=== PATIENT | female | born 1965 | race Caucasian/White ===

== ENCOUNTER 2020-01-19 11:33 | Emergency (ER) | payer OTHER, SELFPAY ==
[2020-01-19 11:49] VITALS: BP 136/82; PULSE 97; RESP 16; TEMP 36.8; O2SAT 98
--- NOTE | 2020-01-19 11:53 | ED.WOUNDLAC ---
HPI - Wound/Laceration General Chief Complaint: Wound/Laceration Stated Complaint: Burn Time Seen by Provider: 01/19/20 11:52 Source: patient and RN notes reviewed Mode of arrival: ambulatory Limitations: no limitations History of Present Illness HPI narrative: 54-year-old female presents with concern for gonzalez to the digits of her right hand. Reports approximately 1 week ago she picked up a hot plastic spoon causing gonzalez to the pads of the third and fourth digits and a burn to the palmar aspect of the fifth digit. Reports the gonzalez blistered, she did not disrupt the blisters. Reports she called her doctor to get an appointment regarding the gonzalez and they told her to come to urgent care. Reports the areas are painful when she touches something, otherwise are not painful. Reports slight tingling under the skin of the burn. She denies any drainage from the area. Denies any redness, fever Extremity Location: Right: hand Related Data Home Medications Medication Instructions Recorded Confirmed clonazepam 0.5 mg tablet 0.5 mg PO TID tablet 10/14/19 10/14/19 lithium carbonate 150 mg capsule 150 mg PO QID 10/14/19 10/14/19 quetiapine 200 mg tablet 200 mg PO DAILY tablet 10/14/19 10/14/19 Allergies Allergy/AdvReac Type Severity Reaction Status Date / Time hydromorphone Allergy Unknown Nausea and Verified 01/19/20 11:55 Vomiting morphine Allergy Unknown Nausea and Verified 01/19/20 11:55 Vomiting Review of Systems Review of Systems: Narrative: CONSTITUTIONAL: Denies malaise, chills, sweats, or fever. CARDIOVASCULAR: Denies chest pain, palpitations, or edema. RESPIRATORY: Denies cough or dyspnea. SKIN: Reports brown, hard skin to the tips of the third and fourth digits, palmar aspect of the fifth digit MUSCULOSKELETAL: Denies decreased range of motion, musculoskeletal pain NEUROLOGIC: Denies numbness, weakness All systems reviewed & are unremarkable except as noted in HPI and below PMFSH Past Medical History Medical History (Updated 01/19/20 @ 12:04 by Meeta Mcgill NP) Bipolar 2 disorder, major depressive episode Family History Family History (System 05/27/19 @ 13:39 by Mary Anderson) Father Acute myocardial infarction, Onset Age: 45 Social History Social History (System 05/27/19 @ 13:39 by Mary Rivas Smoking status: Never smoker Alcohol intake: never Comments At time of signature, agree with nursing past medical, surgical, social and family history. There is no relevant family history pertinent to the presenting complaint Exam Narrative: Exam Narrative: GENERAL: Well-appearing, well-nourished, and in no acute distress. HEAD: Normocephalic EYES: PERRLA, conjunctivae clear ENT: Mucous membranes moist. NECK: Supple. CHEST: No respiratory distress. Speaks in full sentences. HEART: Regular rate and rhythm. EXTREMITIES: Right hand has normal range of motion, no edema, normal strength and sensation. SKIN: Warm, dry, no rash. Palmar, distal aspect of the third and fourth digits have brown, callus healing gonzalez approximately 1 cm diameter with no surrounding induration, erythema, edema, displays routine healing. The palmar medial aspect of the fifth digit has a brown, callus healing burn approximately 0.5 cm diameter with no surrounding induration, erythema, edema, displays routine healing NEURO: Alert and oriented x3. PSYCH: Normal mood and affect Course Course Emergency Course: Patient is aware of diagnosis, understands and agrees to treatment plan. Anticipatory guidance given. Patient agrees to follow-up as directed and is aware of reasons to seek care at the emergency department. Portions of this record may have been created with voice recognition software Vital Signs Vital signs: Vital Signs Temperature 98.2 F 01/19/20 11:49 Pulse Rate 97 01/19/20 11:49 Respiratory Rate 16 01/19/20 11:49 Blood Pressure 136/82 01/19/20 11:49 Pulse Oximetry
== END 2020-01-19 12:09 | disposition home or self-care (01) ==
PROVIDERS: Emergency Provider Nurse Practitioner; PCP Internal Medicine
DX: T23.031A Burn of unspecified degree of multiple right fingers (nail), not including thumb, initial encounter (principal); T79.8XXA Other early complications of trauma, initial encounter; X19.XXXA Contact with other heat and hot substances, initial encounter; E78.00 Pure hypercholesterolemia, unspecified; I10 Essential (primary) hypertension; F41.9 Anxiety disorder, unspecified; F31.81 Bipolar II disorder
CPT/HCPCS: 99211; G0463

== ENCOUNTER 2020-04-11 07:29 | Outpatient (CLI) | payer OTHER, SELFPAY ==
--- NOTE | ~2020-04-11 | US_ITS ---
EXAMINATION: US retroperitoneal duplex ltd EXAM DATE: 04/11/2020 08:53 INDICATION: Essential Hypertension, Abn Findings Of Blood Chemistry R79.89 - Other specified abnormal findings of blood chemistry . TECHNIQUE: Multiple grayscale and Doppler images of the kidneys and renal arteries were obtained. Co rrelation is made to kidney ultrasound same date. FINDINGS: The aorta peak systolic velocity is 56 cm/s. The right renal artery peak systolic velocity is 82 cm/s in the proximal segment, 118 cm/s in the mid segment, and 71 cm/s in the distal segment. Left renal arteries were unable to be obtained, kidney is moderate to severely atrophic. Resistive indices also obtained on the right were also obtained at 0.9, 0.8, 0.6. Normal is considere d less than or equal to 0.7, however there is no right-sided hydronephrosis to otherwise suggest obst ructive nephropathy. IMPRESSION: 1. Right renal artery Doppler velocities within normal limits. 2. Left moderate to severe renal atrophy, artery evaluation could not be obtained. Reviewed, dictated and finalized at location B. 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 Right renal artery Doppler velocities within normal limits. 2. Left moderate to severe renal atrophy, artery evaluation could not be obtai violetta.
--- NOTE | ~2020-04-11 | US_ITS ---
EXAMINATION: US renal BI EXAM DATE: 04/11/2020 08:53 INDICATION: R94.4 - Abnormal results of kidney function studies R79.89 - Other specified abnormal fin dings of blood chemistry. TECHNIQUE: Multiple grayscale and Doppler images of the kidneys were obtained (by a technologist who performed the scan) and subsequently reviewed. Comparison is made to prior examination from 04/11/2020 . FINDINGS: Right kidney: There is normal contour and echogenicity. It measures 11.7 x 6.0 x 5.0 centimeters. T here are no focal renal lesions identified. There is no hydronephrosis. Left kidney: There is atrophic and echogenic. It measures 5.3 x 2.5 x 2.2 centimeters. There are no focal renal lesions identified. There is no hydronephrosis. Bladder unremarkable. IMPRESSION: Moderate to severe chronic left renal atrophy. Reviewed, dictated and finalized at location B. 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
== END 2020-04-11 07:30 | disposition home or self-care (01) ==
PROVIDERS: PCP Internal Medicine; Visit Provider Nurse Practitioner
DX: R94.4 Abnormal results of kidney function studies (principal); R79.89 Other specified abnormal findings of blood chemistry; I10 Essential (primary) hypertension; N26.1 Atrophy of kidney (terminal)
CPT/HCPCS: 76775; 93976

== ENCOUNTER → 2021-09-14 09:11 | Outpatient (CLI) | payer OTHER, SELFPAY ==
--- NOTE | ~2021-09-14 | MMUS_ITS ---
EXAMINATION: MM diagnostic libertad BI w zoe, US breast LT limited HISTORY: Palpable left breast mass for 3 weeks. TECHNIQUE: Additional 3-D tomosynthesis images of the breasts were performed and synthetic 2-D images were generated. CAD analysis was submitted and interpreted. High resolution Limited left breast ultr asound was performed. COMPARISON: No prior studies for comparison. BREAST PARENCHYMAL COMPOSITION: Breast composed of scattered areas of fibroglandular density FINDINGS: MAMMOGRAPHIC FINDINGS: There are no suspicious masses, calcifications or architectural distortion in the right breast. In th e area of palpable concern in the upper inner quadrant of the left breast posteriorly overlying the p ectoralis muscle there is a lobulated irregular shaped mass with some marginal spiculations. ULTRASOUND: Limited left breast ultrasound: At 11:00, 11 cm from the nipple in the area of palpable concern there is a complex irregular shaped mass with heterogeneous internal echotexture, mixed posterior attenuat ion and marginal vascularity. This mass measures 3.7 x 2.4 x 4.7 cm. IMPRESSION: 1. Complex mass of the left breast at 11:00, 11 cm from the nipple, corresponding to the palpable fin ding. 2. Ultrasound-guided left breast biopsy recommended. BI-RADS category 5, highly suggestive of malignancy. Reviewed, dictated and finalized at location A. IMPRESSION: 1. Complex mass of the left breast at 11:00, 11 cm from the nipple, correspondi ng to the palpable finding. 2. Ultrasound-guided left breast biopsy recommended. BI-RADS category 5, highly suggestive of malignancy.
== END ==
PROVIDERS: PCP Internal Medicine; Visit Provider Obstetrics & Gynecology
DX: N63.22 Unspecified lump in the left breast, upper inner quadrant (principal)
CPT/HCPCS: 76642; 77062; 77066; G0279

== ENCOUNTER 2021-11-12 12:49 | Outpatient (CLI) | payer OTHER, SELFPAY ==
--- NOTE | 2021-11-13 12:10 | WPDPFTINT ---
PFT Procedure Performed PFT Procedure Performed Spirometry with Pre/Post Bronchodilator Plethysmography (Lung Vol) Diffusing Cap (DLCO) Flow Vol Loop PFT Interpretation Lung volumes were measured with the body plethysmography method. The diminished expiratory reserve volume is related to obesity. The remaining lung volumes are unremarkable. Spirometry showed normal expiratory flow rates and a normal FEV1 to FVC ratio of 82%. Following administration of a bronchodilator there was no significant change in the expiratory flow rates. Lung diffusion capacity is borderline normal at 74% predicted. The flow volume loop is unremarkable. Impression: Spirometry, lung volumes, and lung diffusion capacity all within the normal range.
== END 2021-11-12 12:50 | disposition home or self-care (01) ==
LOC: ANHPFT 12:51
PROVIDERS: PCP Internal Medicine; Visit Provider Internal Medicine
DX: R05.9 Cough, unspecified (principal); Z72.0 Tobacco use
CPT/HCPCS: 94060; 94726; 94729

== ENCOUNTER 2022-07-31 10:07 | Outpatient (CLI) | payer OTHER, SELFPAY ==
--- NOTE | ~2022-07-31 | XR_ITS ---
XR knee RT 3V, XR knee LT 3V 07/31/2022 10:35 Indication: Bilateral knee pain Procedure: 3 views each knee Comparison: No prior studies for comparison. Findings: There is anatomic alignment. There is mild right patellofemoral compartment osteoarthritis. Small right knee effusion. No fracture or traumatic malalignment. No significant degenerative change or joint effusion in the left knee. No foreign bodies. Impression: 1: Mild patellofemoral compartment osteoarthritis of the right knee. 2: Small right effusion. Reviewed, dictated and finalized at location B. 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 2: Small right effusion. Impression: 1: Mild patellofemoral compartment osteoarthritis of the right knee. 2: Small right effusion.
== END 2022-07-31 10:08 ==
PROVIDERS: PCP Internal Medicine; Visit Provider Clinical Nurse Specialist
DX: M25.562 Pain in left knee (principal); Z85.3 Personal history of malignant neoplasm of breast; M25.461 Effusion, right knee; M17.11 Unilateral primary osteoarthritis, right knee
CPT/HCPCS: 73562